=== PATIENT | female | born 1935 | race Caucasian/White ===

== ENCOUNTER 2019-04-17 12:46 | Observation (INO) ==
[2019-04-17] MEDS ORDERED: TYLENOL PO ONE (13:14)
--- NOTE | 2019-04-17 13:21 | PROVIDER DOCUMENTATION ---
HPI-Head Injury - General Chief Complaint: Fall Stated Complaint: FALL, SYNCOPE Time Seen by Provider: 04/17/19 12:56 Source: patient Allergies/Adverse Reactions: Patient Allergies Allergy/AdvReac Type Severity Reaction Status Date / Time No Known Allergies Allergy Verified 04/17/19 13:12 Home Medications: Home Medication List Medication Instructions Recorded Confirmed Last Taken Type Levothyroxine [Synthroid] 100 microgm PO DAILY 07/24/13 04/17/19 04/17/19 History - History of Present Illness-Head Injury Nature of Presenting Problem: Patient is an 83 yowf who presents via EMS following a head injury. States she was visiting her at [facility], states her shoe was loose and she bent over to straighten it, stumbled, and fell into a wall. States she struck her left shoulder on the wall. She denies LOC. Denies any pain, states, "I need surgery on my left shoulder, so I can hardly move it as it is and the pain isn't worse than usual." Denies syncope, back/neck pain, or any other comp laints. She is neurologically intact and non-toxic in appearance. Review of Systems - Adult - REVIEW OF SYSTEMS - ADULT Constitutional: reports: no symptoms reported Eyes: reports: no symptoms reported Ears, Nose, Mouth & Throat: reports: no symptoms reported Cardiovascular: reports: no symptoms reported Respiratory: reports: no symptoms reported Gastrointestinal: reports: no symptoms reported Genitourinary: reports: no symptoms reported Musculoskeletal: reports: see HPI Integumentary: reports: no symptoms reported Neurological: reports: see HPI (head injury). denies: ataxia, dizziness/vertigo, headache/migraines, loss of balance, numbness, paresthesia, seizure, slurred speech, syncope, tremors Psychiatric: reports: no symptoms reported Endocrine: reports: no symptoms reported Hematologic/Lymphatic: reports: no symptoms reported Allergic/Immunologic: reports: no symptoms reported All Other Systems: Reviewed and Negative Past History - Adult - PAST MEDICAL HISTORY-ADULT Review of Records: reports: Nursing Assessment Review, Medications Reviewed, Social history reviewed & non-contributory. Major Childhood Illnesses: reports: denies history Cardiovascular: reports: HTN Respiratory: reports: denies history Gastrointestinal: reports: denies history Genitourinary: reports: denies history Musculoskeletal: reports: denies history Neurological: reports: denies history Psychiatric: reports: depression Endocrine/Immune: reports: thyroid disorder Other Conditions: reports: denies history - PRIOR SURGERIES/PROCEDURES Surgical/Procedure History: reports: hysterectomy, tonsillectomy, orthopedic (extremity) (shoulder), other (throat) - PRIOR HOSPITALIZATIONS Prior Hospitalizations: reports: none - IMMUNIZATION STATUS Childhood Immunizations: See Nurse Assessment Flu Vaccine: See Nurse Assessment - FAMILY HISTORY Family History: reviewed, not pertinent - SOCIAL HISTORY Smoking: non-smoker Physical Exam- Neurological - Physical Exam-Neuro Initial Vital Signs Reviewed: Yes General Appearance: alert, no apparent distress. negative: lethargic, slow to respond Eye Exam: bilateral eye: normal inspection, PERRL, EOMI HENMT: normocephalic/atraumatic, moist mucous membranes, TMs normal (no hemotympanum) Head Injury: no evidence of injury. negative: active bleeding, Montgomery's Sign, ecchymosis, flap, lacerations, raccoon eyes, swelling, tenderness Neck: non-tender, full range of motion, supple, normal inspection. negative: C- spine tenderness (no stepoff) Respiratory: chest non-tender, lungs clear, normal breath sounds, no pleuratic chest pain, no respiratory distress, no accessory muscle use Cardiovascular: normal peripheral pulses, regular rate, rhythm, no gallop, no murmur Peripheral Pulses: radial (L): 3+ Extremity: non-tender, normal gait, normal inspection, other (ROM of left shoulder limited, pt states her ROM in this shoulder is always limited.). negative: deformity, erythema, swelling, tenderness country director Exam: normal hearing, normal speech, PERRL. negative: abnormal pupil position Motor/Sensory: no motor deficit, no sensory deficit Neurologic: country director II-XII nml as tested, grossly normal, no motor/sensory deficits. negative: aphasia, facial droop, focal weakness, motor weakness, sensory deficit Integumentary: normal color, warm/dry. negative: cyanosis, diaphoresis, jaundice, laceration(s), mottled, pallor Psych/Mental Status: normal mood/affect, normal thought content, normal thought process, oriented x 3 - Glascow Coma Scale Best Eye Response: (4) open spontaneously Best Verbal Response: (5) oriented Best Motor Response: (6) obeys commands Progress - PLAN OF CARE/RESULTS Progress/Plan/Lab Results: Vital Signs - 8 hr 04/17/19 13:10 Temperature 97.6 F Pulse Rate 76 Respiratory Rate 17 Blood Pressure 138/77 O2 Sat by Pulse Oximetry 97 Laboratory Results - last 24 hr 04/17/19 04/17/19 04/17/19 14:18 14:18 14:18 WBC 4.59 L RBC 4.23 Hgb 13.0 Hct 40.6 MCV 96.0 MCH 30.7 MCHC 32.0 L RDW Std Deviation 14.0 Plt Count 186 MPV 11.9 H Immature Gran % (Auto) 0.0 Neut % (Auto) 74.1 Lymph % (Auto) 15.9 L Metcalfe % (Auto) 8.9 Eos % (Auto) 1.1 Baso % (Auto) 0.0 Immature Gran # (Auto) 0.00 Neut # (Auto) 3.40 Lymph # (Auto) 0.73 L Metcalfe # (Auto) 0.41 Eos # (Auto) 0.05 Baso # (Auto) 0.00 PT 14.4 INR 1.11 PTT (Actin FS) 30.1 Sodium 143 Potassium 4.1 Chloride 107 Carbon Dioxide 24 L Anion Gap 12 BUN 17 Creatinine 0.8 Estimated GFR/1.73 m2 > 60 BUN/Creatinine Ratio 21 Glucose 101 Calculated Osmolality 287 Calcium 8.8 Total Bilirubin 0.57 AST 16 ALT 8 L Alkaline Phosphatase 75 Total Protein 6.1 L Albumin 4.0 Globulin 2.1 Albumin/Globulin Ratio 1.9 Orders Category Date Time Status Arm Sling DIRECTED Care 04/17/19 14:07 Active Saline Loc NOW Care 04/17/19 14:[address] HEAD/C-SPINE W/O CONTRAST [CT] Stat Exams 04/17/19 13:14 Completed SHOULDER-LEFT [RAD] Stat Exams 04/17/19 13:14 Completed CBC WITH DIFF [HEME] Stat Lab 04/17/19 14:18 Completed COMPREHENSIVE METABOLIC PANEL [CHEM] Stat Lab 04/17/19 14:18 Completed PROTIME WITH INR [COAG] Stat Lab 04/17/19 14:18 Completed PTT [COAG] Stat Lab 04/17/19 14:18 Completed Acetaminophen [Tylenol] Med 04/17/19 13:14 Discontinued 500 mg PO NOW ONE Result Diagrams: 04/17/19 14:18 04/17/19 14:18 - REASSESSMENT Reassessment #1 Time Reassessed: 14:05 Status: other (Neurosurgery paged. Pt aware of results. No change in neuro st atus since previous.) Reassessment #2 Time Reassessed: 14:07 Status: other (Spoke with Kiara, transfer surgery center administrator who requested images be pushed to them, contacted CT to push CT images.) Reassessment #3 Time Reassessed: 15:05 Status: other (Spoke with LAMONT Levi for neurosurgery in [place] who reviewed CT result and does not recommend transfer at this time- states ok to admit here for follow-up head CT in the am. Admitting HPS paged.) - XRAY 1 XRAY: Left XRAY Study: Shoulder ([facility] - [address] [facility], [address], [place] [address] [facility] - [address] [place] [address] Department of Imaging Patient: DAVID AMAYA Date: 04/17/19MR#: [id number] : 4ADM Status: REG [facility]#: [id number] Age/Sex: 83/FRoom/Bed: Loc: ED Ordering Physician: Cleve Herring Family Physician: Miles Gamino MD Reason for Procedure: injury ___ Signed EXAM: SHOULDER-LEFT HISTORY: injury TECHNIQUE: Shoulder three views including an axillary Y-view COMPARISON: None. FINDINGS: There is a fracture to the distal clavicle. Mild displacement. The bones are osteopenic. Severe long-standing arthritis with glenohumeral joint space narrowing and bony remodeling of the glenoid and humeral head. IMPRESSION: Distal clavicle fracture. Electronically signed by Mark Valadez 04/17/2019 1:56 PM 04/17/19 1356 Interpreting Physician: Mark Valadez MD Dictated Date/Time: 04/17/19 1356 cc: Cleve Herring; Miles Correa MD) - CT/MRI 1 CT Study: Cervical Spine ([facility] - [address], [address], [place] [address] [facility] - [address] [place] [address] Department of Imaging Patient: DAVID AMAYADM Date: 04/17/19MR#: [id number] : [id number] Status: [facility]#: [id number] Age/Sex: 83/FRoom/Bed: Loc: ED Ordering Physician: Cleve Herring Family Physician: Miles Gamino MD Reason for Procedure: head injury, ? LOC Signed EXAM : CT HEAD/C-SPINE W/O CONTRAST HISTORY: head injury, ? LOC TECHNIQUE: 1. CT head without contrast 2. CT cervical spine without contrast COMPARISON: Head compared to 01/04/2014 FINDINGS: Head: Tiny hemorrhage about the left sylvian fissure. No epidural or subdural hematoma. No subarachnoid hemorrhage. There is atrophy with chronic microvascular ischemic changes No mass identified on this noncontrasted exam. No hydrocephalus. No sinus opacification. Cervical spine: There is reversal of the normal curvature. Degenerative bone spurring throughout. No precervical soft tissue swelling. No subluxation. No fracture. Th e bones are osteopenic. IMPRESSION: Head: Tiny hemorrhagic cortical contusion on the left. Follow-up recommended. Cervical spine: No acute fracture. This report was discussed with Dr. Herring in the emergency room on 04/17/2019 at 3:50 PM and was readback. This exam was performed using automated exposure control, adjustment of mA or kV according to patient size, and/or use of iterative reconstruction technique. Electronically signed by Mark Valadez 04/17/2019 1:52 PM 04/17/19 1352 Interpreting Physician: Mark Valadez MD Dictated Date/Time: 04/17/19 1344 cc: Cleve Herring; Miles Gamino MD), Head - CONSULTS/PCP/HOSPITALIST Notification #1 *Consult/PCP/Hospitalist*: TAM Joyner ADVANCED NURSING PROFESSOR Time Discussed: 15:12 Reason/Comments: admission- left cortical contusion Consult Disposition: Admit Departure - Departure Date of Disposition Decision: 04/17/19 Time of Disposition Decision: 15:12 DIAGNOSIS: Fall Qualifiers: Encounter type: initial encounter Qualified Code(s): W19.XXXA - Unspecified fall, initial encounter Cortical contusion Qualifiers: Encounter type: initial encounter Loss of consciousness presence/duration: with LOC of unspecified duration Qualified Code(s): S06.2X9A - Diffuse traumatic brain injury with loss of consciousness of unspecified duration, initial encounter Clavicle fracture Qualifiers: Encounter type: initial encounter Clavicle location: unspecified part of clavi chaka Fracture type: closed Fracture alignment: nondisplaced Laterality: left Qualified Code(s): S42.002A - Fracture of unspecified part of left clavicle, initial encounter for closed fracture Disposition: ADMITTED INPATIENT 09 Certified Medical Emergency: Emergent Condition: Serious Referrals and Follow-Ups: Miles Gamino MD [Primary Care Provider] - - Critical Care Note This patient required my direct & personal management of CC.: No Attestation - Physician/ MALA Attestation Patient care was provided by Advanced Practice Provider:: Yes Advanced Practice Provider:: Cleve Herring Advanced Practice Provider documentation review:: The Mid-level provider documentation, treatment plan and medical decision making was reviewed by the physician who agrees with all treatment and medical decision making by the P. The physician spent face to face time with patient:: No Advanced Practice Provider documentation review:: Supervising physician onsite and consulted in the evaluation and care of this patient. The physician did not have a face to face encounter with the patient.
--- NOTE | 2019-04-17 13:55 | Diag Imaging Result Doc PS360 ---
EXAM : CT HEAD/C-SPINE W/O CONTRAST HISTORY: head injury, ? LOC TECHNIQUE: 1. CT head without contrast 2. CT cervical spine without contrast COMPARISON: Head compared to 01/04/2014 FINDINGS: Head: Tiny hemorrhage about the left sylvian fissure. No epidural or subdural hematoma. No subarachnoid hemorrhage. There is atrophy with chronic microvascular ischemic changes No mass identified on this noncontrasted exam. No hydrocephalus. No sinus opacification. Cervical spine: There is reversal of the normal curvature. Degenerative bone spurring throughout. No precervical soft tissue swelling. No subluxation. No fracture. The bones are osteopenic. IMPRESSION: Head: Tiny hemorrhagic cortical contusion on the left. Follow-up recommended. Cervical spine: No acute fracture. This report was discussed with Dr. Herring in the emergency room on 04/17/2019 at 3:50 PM and was readback. This exam was performed using automated exposure control, adjustment of mA or kV according to patient size, and/or use of iterative reconstruction technique. Electronically signed by Mark Valadez 04/17/2019 1:52 PM
--- NOTE | 2019-04-17 13:58 | Diag Imaging Result Doc PS360 ---
EXAM: SHOULDER-LEFT HISTORY: injury TECHNIQUE: Shoulder three views including an axillary Y-view COMPARISON: None. FINDINGS: There is a fracture to the distal clavicle. Mild displacement. The bones are osteopenic. Severe long-standing arthritis with glenohumeral joint space narrowing and bony remodeling of the glenoid and humeral head. IMPRESSION: Distal clavicle fracture. Electronically signed by Mark Valadez 04/17/2019 1:56 PM
[2019-04-17 14:31] LABS: EOS# 0.05 X1000 (0.0-0.7); EOS% 1.1 % (0.0-10.0); HEMATOCRIT 40.6 % (37.0-47.0); LYMPH# 0.73 X1000 (1.2-3.4); LYMPH% 15.9 % (20.5-51.1); MCH 30.7 PG (27-31); MONO# 0.41 X1000 (0.11-0.59); MONO% 8.9 % (1.7-9.3); MPV 11.9 FL (7.4-10.4); NEUT% 74.1 % (42.2-75.2); PLT 186 X1000 (130-400); RBC 4.23 XMIL (4.2-5.4); WBC 4.59 X1000 (4.8-10.8)
[2019-04-17 14:44] LABS: INR 1.11; PROTIME 14.4 Seconds (11.0-16.0)
[2019-04-17 14:45] LABS: PTT 30.1 Seconds (22.3-41.8)
[2019-04-17 15:02] LABS: AGAP 12; ALB/GLOB RATIO 1.9; ALKALINE PHOSPHATASE 75 U/L (32-104); BUN 17 mg/dL (8-22); CALCIUM 8.8 mg/dL (8.8-10.2); CHLORIDE 107 mmol/L (98-107); COSMO 287; CREATININE 0.8 mg/dL (0.5-0.9); ESTIMATED GFR > 60; GLUCOSE 101 mg/dL (70-104); GOT 16 U/L (10-30); GPT 8 U/L (10-36); POTASSIUM 4.1 mmol/L (3.5-5.1); SODIUM 143 mmol/L (136-145); TCO2 24 mmol/L (25-35); TOTAL BILIRUBIN 0.57 mg/dL (0.20-1.00); TOTAL PROTEIN 6.1 g/dL (6.3-8.3)
--- NOTE | 2019-04-17 16:19 | EKG Report ---
Test Performed on : 04/17/2019 3:44:39 PM Test Reason : CP Blood Pressure : / mmHG Vent. Rate : 073 BPM Atrial Rate : 073 BPM P-R Int : 152 ms QRS Dur : 070 ms QT Int : 388 ms P-R-T Axes : 039 017 051 degrees QTc Int : 427 ms Normal sinus rhythm. Normal ECG When compared with ECG of 08-JUN-2017 14:01, No significant change was found Unconfirmed Result
--- NOTE | 2019-04-17 17:00 | ED EKG INTERP ---
This chart was entered by Lety Bonilla Scribe, acting as scribe for Christophe Pelayo MD. EKG Interpretation - EKG Time of EKG reading by physician:: 15:44 EKG Read and Signed by:: Christophe Pelayo EKG Interpretation (*Must complete 3 of following elements*): Normal Rate: 73 Rhythm: normal sinus rhythm Colby: normal QRS: normal IA Interval: normal ST Wave: normal Comments: normal ECG Attestation - Physician/ MALA Attestation Patient care was provided by Advanced Practice Provider:: Yes Advanced Practice Provider:: Cleve Herring Advanced Practice Provider documentation review:: The Mid-level provider documentation, treatment plan and medical decision making was reviewed by the physician who agrees with all treatment and medical decision making by the MLP. The physician spent face to face time with patient:: No Advanced Practice Provider documentation review:: Supervising physician onsite and consulted in the evaluation and care of this patient. The physician did not have a face to face encounter with the patient. This chart was documented by the indicated scribe, (Lety Bonilla Scribe) and accurately reflects the services I performed and decisions made by , Christophe Pelayo MD, as attested by the provider's signature.
[2019-04-17] MEDS ORDERED: TYLENOL PO PRN (17:17)
[2019-04-17] MEDS ORDERED: NORCO-7.5 PO PRN (17:18)
--- NOTE | 2019-04-17 18:31 | HISTORY AND PHYSICAL ---
PRIMARY CARE PROVIDER: Dr. Miles Gamino. CHIEF COMPLAINT: Fall. HISTORY OF PRESENT ILLNESS: Ms. Herrera is an 83-year-old female who carries a past medical history of dementia, hypertension, hypothyroidism, situational depression, dyslipidemia, reported to the ED after she sustained a fall while visiting her at [facility]. She reports that her has an Alzheimer's diagnosis and he is currently living at [facility]. She goes in eats lunch with him daily as she only lives 5 minutes away. She reported since his illness she has lost a lot of weight and her shoes have become loose on her. She was in the lunch line about the pay for her lunch. Her shoe slipped off her foot. She went down to put it back on and she fell, what she thought hitting only her shoulder. She had immediate pain in her left shoulder. Staff there stated that she had hit her head as well. There was some initial confusion whether she had a syncopal episode or not. However, patient is adamant that she did not lose consciousness. She had thought that she had only hit her shoulder. There was no presyncopal episode. No feeling of passing out, blacking out, dizziness, heart palpitations, chest pain, shortness of breath that preceded her falling. She stated she just bent over to fix her shoe and lost her balance and fell. Workup in the ED showed a tiny hemorrhagic cortical contusion on the left. Shoulder x-ray showed a distal clavicle fracture. She also reports that she was needing shoulder surgery on that right shoulder but her got sick so it was delayed. She was only complaining of left shoulder pain. She has not had a headache. She has not felt sleepy or lethargic. She does repeat herself. However, I believe this is her baseline. There is no confusion. She does tell the same story over and over about what happened. She is awake, alert, oriented x4. Follows all commands. Moves all extremities, but she does have limited range of motion on the left because of needing shoulder surgery, as well as pain because of the clavicle fracture. ED did speak with [facility]. They do not feel like she needed transfer. They reviewed the imaging and felt like she could stay with frequent neuro checks and a repeat head CT in the a.m. PAST MEDICAL HISTORY: 1. Hypertension. 2. Hypothyroidism. 3. Depression. 4. Dyslipidemia. 5. Dementia. PAST SURGICAL HISTORY: Right shoulder surgery. FAMILY HISTORY: Reviewed and noncontributory. SOCIAL HISTORY: She lives alone. She is . Her is in the senior care at [facility] with Alzheimer's. She does have a daughter who lives in town. No alcohol, tobacco, or illicit drug use. REVIEW OF SYSTEMS: Twelve-point review of systems completely negative except for those mentioned in HPI. PHYSICAL EXAMINATION: VITAL SIGNS: Temperature is 97.6 degrees, heart rate 76, respirations 17, blood pressure 138/77, O2 is 97% on room air. GENERAL: Ms. Herrera is a pleasant, 83-year-old female who is lying on the stretcher, in no acute distress, complaining of some left shoulder pain. HEENT: Atraumatic, normocephalic. PERRL. NECK: Supple. Trachea midline. CARDIOVASCULAR: S1, S2 appreciated. No murmurs, gallops, rubs noted. RESPIRATORY: Lung sounds clear bilaterally. GI: Soft, nontender, nondistended. Positive bowel sounds 4 quadrants. EXTREMITIES: Lower extremities are negative for edema. NEUROLOGIC: The patient is awake, alert, oriented. Follows commands. She does move all extremities. However, she has limited range of motion on the left because of needing shoulder surgery. She could not really move her arm up before her fracture. She does have some associated pain on the left. No focal deficits noted. LABORATORY DATA: White count 4, hemoglobin and hematocrit 13 and 40, platelet count 186,000. Sodium 143, potassium 4.1, BUN 17, creatinine 0.8, blood glucose is 101. Head and cervical spine CT showed tiny hemorrhagic cortical contusion on the left. Cervical spine showed no acute fracture. Left shoulder x-ray showed a clavicle fracture. ASSESSMENT AND PLAN: 1. Mechanical fall. The patient has suffered a left clavicle fracture and a tiny hemorrhagic cortical contusion on the left. The patient will be admitted to the ICU with frequent neuro checks. Monitor her blood pressures closely and follow up with a CT of the head in the a.m. Imaging was reviewed by [facility]. They felt that she did not need to be transferred and could be watched overnight in observation status. 2. Left clavicle fracture. We will do p.r.n. pain medication. She will need an appointment with Orthopedics after discharge. 3. Dementia. Aware. 4. Hypertension. 5. Hyperlipidemia. 6. Hypothyroidism. 7. Further recommendation to follow physician evaluation, laboratory and diagnostic data. Dictated by JUDITH Duran for Branden Levin MD Addendum: Patient seen and examined by myself. Agree with JUDITH note. It reflects my assessment and plan. Patient is being admitted to hospital for fall that cause a tiny hemorrhagic contusion. Will monitor patient in ICU and will repeat CT head in am. If normal patient will be discharged. cc: MD Miles Gutiérrez MD Robert S. Tapscott, MD MTDD
[2019-04-17] MEDS: NORCO-5 PO PRN (20:16)
[2019-04-17] MEDS: ZOFRAN IV PRN (23:20)
[2019-04-18] MEDS: NORCO-5 PO PRN (00:24)
[2019-04-18] MEDS: ZOFRAN IV PRN (05:39)
[2019-04-18 05:42] LABS: URINE SOURCE CLEAN CATCH
[2019-04-18 05:46] LABS: EOS# 0.02 X1000 (0.0-0.7); EOS% 0.5 % (0.0-10.0); HEMATOCRIT 37.8 % (37.0-47.0); LYMPH# 0.93 X1000 (1.2-3.4); LYMPH% 22.4 % (20.5-51.1); MCH 30.5 PG (27-31); MCHC 31.7 g/dL (33-37); MCV 96.2 FL (81-99); MPV 12.4 FL (7.4-10.4); NEUT# 2.71 X1000 (1.4-6.5); NEUT% 65.1 % (42.2-75.2); PLT 175 X1000 (130-400); RBC 3.93 XMIL (4.2-5.4); RDW 13.6 % (11.5-14.5); WBC 4.16 X1000 (4.8-10.8)
[2019-04-18 05:47] LABS: BILIRUBIN URINE NEGATIVE (NEGATIVE); BLOOD URINE NEGATIVE (NEGATIVE); COLOR YELLOW; GLUCOSE URINE NEGATIVE (NEGATIVE); KETONE URINE NEGATIVE (NEGATIVE); LEUKOCYTES URINE TRACE (NEGATIVE); NITRITE URINE POSITIVE (NEGATIVE); PH URINE 5.5; PROTEIN URINE TRACE mg/dL (NEGATIVE); SP GRAVITY URINE 1.024; TURBIDITY URINE CLEAR (CLEAR); UR EPITHELIAL CELLS <10 /HPF (<10); URINE BACTERIA 4+ /HPF; URINE RBC <10 /HPF (<10); URINE WBC <10 /HPF (<10); UROBILINOGEN URINE NORMAL (NORMAL)
[2019-04-18 06:20] LABS: AGAP 9; BUN 12 mg/dL (8-22); CALCIUM 8.5 mg/dL (8.8-10.2); CHLORIDE 108 mmol/L (98-107); COSMO 283; CREATININE 0.7 mg/dL (0.5-0.9); ESTIMATED GFR > 60; GLUCOSE 104 mg/dL (70-104); POTASSIUM 4.1 mmol/L (3.5-5.1); SODIUM 142 mmol/L (136-145); TCO2 25 mmol/L (25-35)
--- NOTE | 2019-04-18 06:50 | Diag Imaging Result Doc PS360 ---
CT HEAD W/O CONTRAST - 04/18/2019 INDICATION: Head injury COMPARISON: 04/17/2019 FINDINGS: There is stable advanced, diffuse cerebral atrophy. No intracranial mass or hemorrhage. The skull is intact. The sinuses are clear. IMPRESSION: Resolution of the tiny cortical-based hyperdensity on the left cerebral hemisphere. No new abnormalities. This exam was performed using automated exposure control, adjustment of mA or kV according to patient size, and/or use of iterative reconstruction technique Electronically signed by José Miguel Garcia 04/18/2019 6:47 AM
[2019-04-18] MEDS ORDERED: SYNTHROID PO SCH (09:00)
[2019-04-18 09:59] VITALS: BP 122/62
--- NOTE | 2019-04-18 22:41 | DISCHARGE SUMMARY ---
ADMISSION DATE: 04/17/2019 DISCHARGE DATE: 04/18/2019 DISCHARGE DIAGNOSES: 1. Mechanical fall. 2. Tiny hemorrhagic cortical contusion of the left, resolved. 3. Left clavicle fracture. 4. Hypertension. 5. Hyperlipidemia. 6. Hypothyroidism. CONSULTATIONS: None. PROCEDURES: 1. CT of the cervical spine and head done on 04/17 showed tiny hemorrhagic cortical contusion on the left with followup recommended. Cervical spine did not show any acute fracture. 2. Head CT done today, in the morning, showed resolution of the tiny cortical-based hyperdensity in the left cerebral hemisphere. HOSPITAL COURSE: In brief, this is an 83-year-old female, past medical history of dementia, hypertension, hypothyroidism who was visiting her at [facility], where her shoe slipped off of her foot, she went down, back, but unfortunately she fell. That was not a syncopal episode, was just she tripped over, so she was brought to the emergency department, where we found this tiny hemorrhagic cortical contusion. ER doctor consulted Neurosurgery and they said that patient requires only observation. We have checked another CT scan, which did not show any hemorrhagic contusions, so patient is going to be discharged in stable condition. There has not been any neurological changes during her whole hospitalization. Upon my examination at discharge, she is oriented. Her speech is coherent. She was complaining of some nausea secondary to use of [place] for this left clavicle fracture, but neurologically she is okay. DISCHARGE PHYSICAL EXAMINATION: Vital signs: Temperature 98.3 degrees, heart rate 61, respiratory rate 19, blood pressure 142/66. O2 saturation 98% on room air. General: This is a 89-year-old female lying in bed, in no acute distress. Cardiovascular: S1, S2 heard. No murmurs, gallops, or rubs. Regular rate and rhythm. Respiratory: Clear bilaterally to auscultation. No work of breathing or using accessory muscles. Abdomen: Soft, nontender to palpation. Bowel sounds present. No organomegaly. Extremities: No clubbing, cyanosis, or edema. Peripheral pulses present in both legs. Neurological: The patient alert and oriented x3. Moves 4 extremities. DISCHARGE DISPOSITION: Home to self-care. DISCHARGE MEDICATIONS: 1. Tramadol 50 mg, 1 to 2 tablets p.o. every 4 to 6 hours as needed for pain. 2. Zofran ODT 1 tablet every 4 hours as needed for nausea. cc: Branden Levin MD
== END 2019-04-18 10:35 | disposition home or self-care (01) ==
LOC: SUPCPDRO → EDIPHOLD 12:46 → ED 12:46 → ICU 17:24
PROVIDERS: ATTEND Internal Medicine